=== PATIENT | female | born 1945 | race Caucasian/White ===

== ENCOUNTER 2018-03-11 12:04 | Outpatient (CLI) | payer MEDICARE | END 2018-03-11 12:05 | disposition home or self-care (01) | LOC: BICMAMMO 12:04 | PROVIDERS: ATTEND Family Medicine | DX: Z12.31 Encounter for screening mammogram for malignant neoplasm of breast (principal); Z80.3 Family history of malignant neoplasm of breast | CPT/HCPCS: 77063; 77067 ==

== ENCOUNTER 2019-03-12 10:14 | Outpatient (CLI) | payer MEDICARE ==
--- NOTE | 2019-03-12 11:24 | MMO ---
Bilateral MAMMO Bilat Screen [facility]. CLINICAL HISTORY: Patient is 73 years old and is seen for screening. The patient has the following family history of breast cancer: mother. The patient has no personal history of cancer. VIEWS: The views performed were: bilateral craniocaudal with tomosynthesis and bilateral mediolateral oblique with tomosynthesis. FILMS COMPARED: The present examination has been compared to prior imaging studies performed at [facility] on 08/19/2012 and 03/11/2018, and at [facility] on 08/07/2006. MAMMOGRAM FINDINGS: The breasts are heterogeneously dense, which could obscure a lesion on mammography. There are no suspicious masses, suspicious calcifications, or new areas of architectural distortion. IMPRESSION: THERE IS NO MAMMOGRAPHIC EVIDENCE OF MALIGNANCY. A ROUTINE FOLLOW-UP MAMMOGRAM IN 1 YEAR IS RECOMMENDED. THE RESULTS OF THIS EXAM WERE SENT TO THE PATIENT. ACR BI-RADS Category 1 - Negative MAMMOGRAPHY NOTE: 1. A negative mammogram report should not delay a biopsy if a dominant of clinically suspicious mass is present. 2. Approximately 10% to 15% of breast cancers are not detected by mammography. 3. Adenosis and dense breasts may obscure an underlying neoplasm.
--- NOTE | 2019-03-12 11:39 | BD ---
BONE DENSITOMETRY USING DEXA: Date: 03/12/19 HISTORY: Postmenopausal screening for osteoporosis. FINDINGS: Lumbar Spine: BMD (g/cm2) L1 0.528 T-Score: -4.2 Z-Score: -2.3 L2 0.521 T-Score: -1.6 Z-Score: -2.4 L3 0.538 T-Score: -5.0 Z-Score: -2.7 L4 0.537 T-Score: -4.8 Z-Score: -2.4 L1-L4 0.531 T-Score: -4.7 Z-Score: -2.5 Femoral Neck: 0.429 T-Score: -3.8 Z-Score: -1.9 Total Femur: 0.615 T-Score: -2.7 Z-Score: -1.1 There has been interval reduction of 11.3% in the bone mineral density of the lumbar spine and a redu ction of 9.8% in the bone mineral density of the proximal femur since 02/16/13. IMPRESSION: Osteoporosis. POS: ANDREW
== END 2019-03-12 10:15 | disposition home or self-care (01) ==
LOC: BICMAMMO 10:14
PROVIDERS: ATTEND Family Medicine
DX: Z12.31 Encounter for screening mammogram for malignant neoplasm of breast (principal); Z13.820 Encounter for screening for osteoporosis; M81.0 Age-related osteoporosis without current pathological fracture; Z80.3 Family history of malignant neoplasm of breast
CPT/HCPCS: 77063; 77067; 77080